=== PATIENT | female | born 1995 | race Hispanic/Latino ===

== ENCOUNTER 2025-03-10 13:45 | Emergency (ER) | payer OTHER, SELFPAY ==
--- NOTE | ~2025-03-10 | US_ITS ---
EXAMINATION: US transvaginal INDICATION: Recent D&C. Increased vaginal bleeding past 2 days Comparison:No prior studies for comparison. TECHNIQUE: Multiple endovaginal sonographic images of the pelvis performed. FINDINGS: The uterus measures 10.2 x 5.2 x 5.6 cm. The endometrium is heterogeneous measuring 11 mm. The right ovary measures 3.3 x 2.6 x 1.1 cm and the left ovary measures 3 x 3 x 2.4 cm. There are small follicles in each ovary. Normal doppler signal in both ovaries. There is trace free fluid in the pelvis. There are no abnormal masses seen on either side. IMPRESSION: 1. Borderline thickening of the endometrium measuring 11 mm with heterogeneous appearance. Reviewed, dictated and finalized at location O.
[2025-03-10 13:49] VITALS: BP 120/81; PULSE 94; RESP 16; TEMP 36.5; O2SAT 96
--- NOTE | 2025-03-10 16:08 | ED_ITS ---
HPI - General Chief complaint: ORTHOPEDIC SHOE [employer]TER Stated complaint: Vag bleeding-DC last tuesday Time Seen by Provider: 03/10/25 14:04 History of Present Illness HPI Narrative: Patient is a 29-year old female who presents to the ER with increased vaginal bleeding. She reports she had a D&C on Tuesday, 4 days ago. Patient reports yesterday she had increased cramping and increased vaginal bleeding. Earlier today she passed a palm-sized dark red blood clot. She also endorses nausea when she passed a clot. Patient reports she had a D&C in [place], where her OBGYN is located. At time of examination patient continues to endorse small clots, intermittent abdominal cramping, headache, and dizziness. She denies any pertinent medical history other than 2 previous miscarriages. Patient denies any shortness of breath, chest pain, urinary symptoms, or fevers. Related Data Allergies Allergy/AdvReac Type Severity Reaction Status Date / Time No Known Allergies Allergy Verified 03/10/25 14:28 Review of Systems 2 Review of Systems: All systems reviewed & are unremarkable except as noted in HPI and below Exam 2 Narrative: GENERAL: Well appearing, well-nourished, non-toxic, in no acute distress. HEAD: Normocephalic, atraumatic. NECK: Supple. No adenopathy, no masses. RESPIRATORY: Airway patent, respirations nonlabored. Clear to auscultation bilaterally, no rales, rhonchi, wheezing. CARDIOVASCULAR: Regular rate and rhythm without murmurs, rubs, or gallops. Peripheral pulses 2+ and equal bilaterally. ABDOMINAL: Soft, tender bilateral lower quadrants, nondistended, no hepatosplenomegaly. Normoactive BS. MUSCULOSKELETAL: Moves all extremities. Strength/ROM intact without gross deformities. SKIN: Warm, dry, normal color. No rashes. NEURO: A&O X3. Speech clear. Cranial nerves II-XII intact. No ataxic movements. PSYCHIATRIC: Appropriate mood and affect. Normal interaction. : Patient's vaginal exam indicates a mild to moderate amount of dark then blood coming from patient's cervix. Cervix appears mostly closed. No excessive pooling in patient's vaginal canal. Course Vital Signs Vital signs: Vital Signs Temperature 36.5 C 03/10/25 13:49 Pulse Rate 94 03/10/25 13:49 Respiratory Rate 16 03/10/25 13:49 Blood Pressure 120/81 03/10/25 13:49 Pulse Oximetry 96 03/10/25 13:49 Oxygen Delivery Room Air 03/10/25 13:49 Temperature 36.5 C 03/10/25 13:49 Pulse Rate 98 03/10/25 19:25 Respiratory Rate 12 03/10/25 19:25 Blood Pressure 118/78 03/10/25 19:25 Pulse Oximetry 99 03/10/25 19:25 Oxygen Delivery Room Air 03/10/25 13:49 MDM - OB/Uterine Contractions MDM Narrative Medical decision making narrative: Patient is a 29-year old female who presents to the ER with increased vaginal bleeding. She reports she had a D&C on Tuesday, 4 days ago. Patient reports yesterday she had increased cramping and increased vaginal bleeding. Earlier today she passed a palm-sized dark red blood clot. She also endorses nausea when she passed a clot. Patient reports she had a D&C in [place], where her OBGYN is located. At time of examination patient continues to endorse small clots, intermittent abdominal cramping, headache, and dizziness. She denies any pertinent medical history other than 2 previous miscarriages. Patient denies any shortness of breath, chest pain, urinary symptoms, or fevers. Labs Ordered: CBC, CMP, beta hCG quant, Rh immunoglobulin screen Imaging Ordered: Transvaginal ultrasound Medications Ordered: Toradol 15mg IV Results: PT's US indicates the uterus measures 10.2 x 5.2 x 5.6 cm. The endometrium is heterogeneous measuring 11 mm. The right ovary measures 3.3 x 2.6 x 1.1 cm and the left ovary measures 3 x 3 x 2.4 cm. There are small follicles in each ovary. Normal doppler signal in both ovaries. There is trace free fluid in the pelvis. There are no abnormal masses seen on either side. Diagnosis: Vaginal bleeding Consults: OBGYN (outpatient) Patient Education/Shared MDM: Results of lab work and imaging shared with patient. Her CBC is reassuring, as her hemoglobin is 12.4. Patient's ultrasound does not indicate any retained products of conception. Patient was strongly advised to call her OBGYN tomorrow to further discuss a plan. She was advised to take ibuprofen 800 mg every 8 hours. If patient passes and other palm sized clot she should return to the ER. She endorses improvement of symptoms following medication administration. Patient strongly advised to maintain hydration status upon discharge. She will not be be discharged home with any new prescriptions. Strict return precautions provided. Patient verbalized understanding and is in agreement with plan. Vital signs stable at time of discharge. All questions answered. Differential Diagnosis Differential diagnosis: Likely other (Vaginal bleeding, retained products of conception, urinary tract infection, anemia) Lab Data Attestation: I reviewed the patient's lab results. 03/10/25 15:05 03/10/25 15:05 Labs: Lab Results 03/10/25 03/10/25 Range/Units 15:05 16:25 WBC 5.7 (4.5-10.0) K/mm3 RBC 3.57 L (4.2-5.4) M/mm3 Hgb 12.4 (12.0-15.0) g/dL Hct 34.0 L (37.0-47.0) % MCV 95.2 (80-100) fl MCH 34.7 H (26-34) pg MCHC 36.5 H (32-36) g/dl RDW 13.3 (11.5-14.5) % Plt Count 271 (150-375) k/mm3 MPV 10.3 (7.4-10.4) fl Immature Gran % (Auto) 0.2 (0-0.5) % Neut % (Auto) 64.3 (45.5-73.1) % Lymph % (Auto) 21.6 (18.3-44.2) % [place] % (Auto) 11.0 H (2.6-8.5) % Eos % (Auto) 2.4 (0-4.4) % Baso % (Auto) 0.5 (0.2-1.2) % Lymph # (Auto) 1.24 (0.9-3.2) K/mm3 [place] # (Auto) 0.6 (0.1-0.6) K/mm3 Eos # (Auto) 0.1 (0-0.3) K/mm3 Baso # (Auto) 0.0 (0.0-0.1) K/mm3 Abs Immat Gran (auto) 0.01 (0.00-0.031) K/mm3 Absolute Neuts (auto) 3.7 (1.3-6.7) K/mm3 Absolute Nucleated RBC 0.000 (0.0-0.012) K/mm3 Nucleated RBC % 0.0 (0.0-0.2) % Sodium 140 (137-145) mmol/L Potassium 3.7 (3.4-5.0) mmol/L Chloride 106 (98-107) mmol/L Carbon Dioxide 23 (22-30) mmol/L Anion Gap 11 (4-12) mmol/L BUN 5 L (7-17) mg/dL Creatinine 0.55 L (0.7-1.0) mg/dL Estim Creat Clear Calc 130 ml/min Estimated GFR > 60 (59 - ) Glucose 93 (65-110) mg/dL Calcium 9.4 (8.4-10.2) mg/dL Total Bilirubin 1.3 (0.2-1.3) mg/dL AST 36 (14-36) U/L ALT 45 H (6-35) U/L Alkaline Phosphatase 86 (38-126) U/L Total Protein 7.7 (6.3-8.2) g/dL Albumin 4.5 (3.5-5.1) g/dL Beta HCG, Quant 222.73 mIU/ML Urine Color Yellow (Yellow) Urine Appearance Cloudy H (Clear) Urine pH 5.5 (5.0-9.0) Ur Specific [place] 1.021 (1.001-1.035) Urine Protein Trace (Negative) mg/dL Urine Glucose (UA) Negative (Negative) mg/dL Urine Ketones Negative (Negative) mg/dL Ur Blood (Man) 3+ H (Negative) Urine Nitrate Negative (Negative) Urine Bilirubin Negative (Negative) Urine Urobilinogen 1.0 (<2.0) mg/dL Leukocyte Esterase Rfl Trace H (Negative) NANCY/UL Urine RBC >100 H (0-2) /hpf Urine WBC 0-5 (0-3) /hpf Ur Squamous Epith Cells None seen (Few) /hpf Urine Bacteria None seen /hpf Urine Casts 0-2 Blood Type O Positive Antibody Screen Negative Screen Not Reportable Baby's Blood Type Not Reportable Baby's KIM Not Reportable Doses of RhIg Required 0 Imaging Data Attestation: I personally reviewed and interpreted this imaging study as follows: Radiologist's impression: Impressions Transvaginal US 08/24/25 17:07 IMPRESSION: 1. Borderline thickening of the endometrium measuring 11 mm with heterogeneous appearance. Discharge Plan Discharge Clinical Impression: Abnormal vaginal bleeding, History of dilatation and curettage Patient Disposition: Home Condition: Stable Instructions: Antibiotic Form, Abnormal (Dysfunctional) Uterine Bleeding (ED), Dilation and Curettage (DC) Additional Instructions: Please return to the ER with any worsening symptoms. Follow-up with your OBGYN as soon as possible. Take all medications as prescribed, including regularly scheduled medications. You may take Tylenol and ibuprofen as needed for pain control. Patient Language: Slovak Follow-up/Referrals: PHYSICIAN NOT ON STAFF,NONSTAFF [Primary Care Provider] Time of Disposition: 19:24
[2025-03-10 16:19] LABS: Hematocrit 34.0 % (37.0-47.0); Hemoglobin 12.4 g/dL (12.0-15.0); Immature Granulocyte Percent A 0.2 % (0-0.5); Lymphocytes Absolute Auto 1.24 K/mm3 (0.9-3.2); Mean Corpuscular HGB Conc 36.5 g/dl (32-36); Mean Corpuscular Hemoglobin 34.7 pg (26-34); Mean Corpuscular Volume 95.2 fl (80-100); Nucleated Red Blood Cells Absolute Auto 0.000 K/mm3 (0.0-0.012); Nucleated Red Blood Cells Perc 0.0 % (0.0-0.2); Platelet Count Result 271 k/mm3 (150-375); Red Blood Count 3.57 M/mm3 (4.2-5.4); White Blood Count 5.7 K/mm3 (4.5-10.0)
[2025-03-10 16:34] LABS: Alanine Aminotransferase 45 U/L (6-35); Albumin Level 4.5 g/dL (3.5-5.1); Alkaline Phosphatase 86 U/L (38-126); Anion Gap 11 mmol/L (4-12); Aspartate Amino Transferase 36 U/L (14-36); Bilirubin,Total 1.3 mg/dL (0.2-1.3); Blood Urea Nitrogen 5 mg/dL (7-17); Calcium 9.4 mg/dL (8.4-10.2); Carbon Dioxide 23 mmol/L (22-30); Chloride 106 mmol/L (98-107); Estimated CRCL calculation 130 ml/min; Estimated Glomerular Filt Rate > 60; Glucose 93 mg/dL (65-110); Potassium 3.7 mmol/L (3.4-5.0); Sodium 140 mmol/L (137-145); Total Protein 7.7 g/dL (6.3-8.2)
[2025-03-10 16:46] LABS: Beta HCG Quantitative 222.73 mIU/ML
[2025-03-10 16:58] VITALS: BP 114/69; PULSE 72; RESP 17; O2SAT 100
[2025-03-10] MEDS: KETOROLAC 15 MG/ML VIAL (*BKC) IV PUSH (17:03)
[2025-03-10 17:08] VITALS: BP 121/75; PULSE 96; RESP 20; O2SAT 99
[2025-03-10 17:23] LABS: Add Urine Microscopic? YES; Appearance Urine Cloudy (Clear); Glucose Urine UA Negative (Negative); Leukocyte Esterase Ur Trace LEU/UL (Negative); Nitrate Urine Negative (Negative); Non Pathogenic Casts 0-2; Specific Grav Ur 1.021 (1.001-1.035)
[2025-03-10 19:25] VITALS: BP 118/78; PULSE 98; RESP 12; O2SAT 99
== END 2025-03-10 19:49 | disposition home or self-care (01) ==
PROVIDERS: Emergency Provider Registered Nurse
DX: N93.9 Abnormal uterine and vaginal bleeding, unspecified (principal); Z98.890 Other specified postprocedural states
CPT/HCPCS: 36415; 76830; 80053; 81001; 84702; 85025; 85461; 86850; 86900; 86901; 96374; 99284; J1885